=== PATIENT | female | born 1995 | race Caucasian/White ===

== ENCOUNTER 2019-04-14 20:27 | Emergency (ER) | payer OTHER ==
[~2019-04-14] VITALS: Ht 154.9 cm; Wt 74.0 kg
[2019-04-14 20:35] VITALS: Ht 154.9 cm; Wt 74.0 kg
[2019-04-14 23:50] VITALS: BP 117/83
== END 2019-04-15 00:40 | disposition home or self-care (01) ==
LOC: ED 20:27
DX: M54.5 Low back pain (principal); T76.21XA Adult sexual abuse, suspected, initial encounter
CPT/HCPCS: 87491; 87591; J1885